=== PATIENT | female | born 1995 | race American Indian/Alaskan Native ===

== ENCOUNTER 2022-06-03 15:36 | Emergency (ER) | payer SELFPAY ==
--- NOTE | 2022-06-03 20:08 | Emergency Department Report ---
ED ENT HPI - General Chief complaint: Sore Throat Stated complaint: SORE THROAT Time Seen by Provider: 06/03/22 20:02 Source: patient Mode of arrival: Ambulatory Limitations: No Limitations - History of Present Illness Initial comments: 23-year-old female with no significant past medical history reports to the ER with complaints of sore throat with headache that started last night but got worse this morning. Patient reports pain with swallowing. Patient has not taking anything for her pain. Patient denies cough, chest pain, shortness of breath, weakness, chills. Patient reports no other acute symptoms at this time. - Related Data Previous Rx's Medication Instructions Recorded Last Taken Type Amoxicillin [Trimox CAP] 500 mg PO BID 10 Days #20 capsule 06/03/22 Unknown Rx Ibuprofen [Motrin] 600 mg PO Q8H PRN 7 Days #21 tablet 06/03/22 Unknown Rx Allergies Allergy/AdvReac Type Severity Reaction Status Date / Time No Known Allergies Allergy Verified 06/03/22 16:40 ED Dental HPI - General Chief complaint: Sore Throat Stated complaint: SORE THROAT Time Seen by Provider: 06/03/22 20:02 Source: patient Mode of arrival: Ambulatory Limitations: No Limitations - Related Data Previous Rx's Medication Instructions Recorded Last Taken Type Amoxicillin [Trimox CAP] 500 mg PO BID 10 Days #20 capsule 06/03/22 Unknown Rx Ibuprofen [Motrin] 600 mg PO Q8H PRN 7 Days #21 tablet 06/03/22 Unknown Rx Allergies Allergy/AdvReac Type Severity Reaction Status Date / Time No Known Allergies Allergy Verified 06/03/22 16:40 ED Review of Systems ROS: Stated complaint: SORE THROAT Other details as noted in HPI Comment: All other systems reviewed and negative ENT: throat pain. denies: dental pain, congestion Neurological: headache ED Past Medical Hx - Past Medical History Previous Medical History?: No - Medications Home Medications: Home Medications Medication Instructions Recorded Confirmed Last Taken Type Amoxicillin [Trimox CAP] 500 mg PO BID 10 Days #20 capsule 06/03/22 Unknown Rx Ibuprofen [Motrin] 600 mg PO Q8H PRN 7 Days #21 tablet 06/03/22 Unknown Rx ED Physical Exam - General Limitations: No Limitations General appearance: alert, in no apparent distress - Head Head exam: Present: atraumatic, normocephalic - Eye Eye exam: Present: normal appearance - ENT ENT exam: Present: mucous membranes moist - Expanded ENT Exam Expanded Throat exam: Positive: tonsillar erythema, tonsillar exudate. Negative: tonsillomegaly, R peritonsillar mass, L peritonsillar mass - Neck Neck exam: Present: normal inspection - Respiratory Respiratory exam: Present: normal lung sounds bilaterally. Absent: respiratory distress - Cardiovascular Cardiovascular Exam: Present: regular rate, normal rhythm. Absent: systolic murmur, diastolic murmur, rubs, gallop - GI/Abdominal GI/Abdominal exam: Present: soft, normal bowel sounds - Extremities Exam Extremities exam: Present: normal inspection - Back Exam Back exam: Present: normal inspection - Neurological Exam Neurological exam: Present: alert, oriented X3 - Psychiatric Psychiatric exam: Present: normal affect, normal mood - Skin Skin exam: Present: warm, dry, intact, normal color. Absent: rash ED Course Vital Signs 06/03/22 16:40 Temperature 100.6 F H Pulse Rate 93 H Respiratory 16 Rate Blood Pressure 111/60 [Left] O2 Sat by Pulse 99 Oximetry ED Medical Decision Making - Medical Decision Making 27-year-old female reports to the ER with complaints of sore throat and headache since late last night with worsening today. Patient reports taking no medication for symptoms. Patient reports pain with eating. No concerns of airway issues. Denies shortness of breath chest pain, dizziness, weakness and no cough. On physical exam there is erythema and tonsilar exudate and cervical adenopathy present. No concerns for peritonsillar abscess, no neck mass noted, no airway concerns. No nasal congestion. No cough present. Based on clinical findings patient will be treated for strep throat. Patient will be started on amoxicillin for treatment. Patient agrees with plan of care and verbalizes understanding. Patient informed if symptoms are to get worse to report back to the ER. No further work-up is needed at this time. Vital Signs 06/03/22 16:40 Temperature 100.6 F H Pulse Rate 93 H Respiratory 16 Rate Blood Pressure 111/60 [Left] O2 Sat by Pulse 99 Oximetry d/c vS - bp 128/69, 98% room air, 12 respiration rate, 67 heart rate Critical care attestation.: If time is entered above; I have spent that time in minutes in the direct care of this critically ill patient, excluding procedure time. ED Disposition Clinical Impression: Sore throat Acute pharyngitis Qualifiers: Pharyngitis/tonsillitis etiology: unspecified etiology Qualified Code(s): J02.9 - Acute pharyngitis, unspecified Headache Qualifiers: Headache type: other headache syndrome Qualified Code(s): G44.89 - Other headache syndrome Disposition: 01 HOME / SELF CARE / HOMELESS Is pt being admited?: No Condition: Stable Instructions: Strep Throat, Adult, Pharyngitis, [id number], Sore Throat, E asy-to-Read Prescriptions: Ibuprofen [Motrin] 600 mg PO Q8H PRN 7 Days #21 tablet PRN Reason: Pain Amoxicillin [Trimox CAP] 500 mg PO BID 10 Days #20 capsule Referrals: LORENZA GHOTRA MD [Primary Care Provider] - 3-5 Days
[2022-06-03 20:29] VITALS: BP 128/69
== END 2022-06-03 20:29 | disposition home or self-care (01) ==
LOC: ED 15:36
DX: J02.9 Acute pharyngitis, unspecified (principal); R51.9 Headache, unspecified
CPT/HCPCS: 99282